=== PATIENT | male | born 1995 | race Two or more races ===

== ENCOUNTER 2021-06-09 21:29 | Emergency (ER) | payer OTHER ==
[~2021-06-09] VITALS: Ht 175.3 cm; Wt 68.2 kg
[2021-06-09 21:33] VITALS: BP 129/70
[2021-06-09] MEDS ORDERED: PredniSONE 20 MG TABLET PO ONE (22:15)
[2021-06-09] MEDS ORDERED: BACI3.5O24 OS (22:18)
== END 2021-06-09 22:34 | disposition home or self-care (01) ==
LOC: EMS 21:31
DX: H00.015 Hordeolum externum left lower eyelid (principal)
CPT/HCPCS: 99283; J7512

== ENCOUNTER 2023-10-13 14:47 | Emergency (ER) | payer OTHER ==
[~2023-10-13] VITALS: Ht 177.8 cm; Wt 75.0 kg
[~2023-10-13 14:47] MED LIST: BACI3.5O24 OS
[2023-10-13 14:51] VITALS: BP 133/64; PULSE 103; RESP 18; TEMP 103.3
[2023-10-13 16:04] LABS: INFLUENZA A-RTPCR,COMBO NEGATIVE (NEGATIVE); INFLUENZA B-RTPCR,COMBO NEGATIVE (NEGATIVE); RESPIRATORY SYNCYTIAL VRS-PCR NEGATIVE (NEGATIVE); SARS COVID19 RTPCR, COMBO NEGATIVE (NEGATIVE)
[2023-10-13] MEDS ORDERED: IBUP-1554 PO (17:23)
[2023-10-13] MEDS ORDERED: ACET-66 PO (17:23)
[2023-10-13] MEDS ORDERED: GUAIFDM PO (17:23)
== END 2023-10-13 18:04 | disposition home or self-care (01) ==
LOC: EMS 14:53
DX: J06.9 Acute upper respiratory infection, unspecified (principal); R50.9 Fever, unspecified; R05.9 Cough, unspecified; R51.9 Headache, unspecified; Z20.822 Contact with and (suspected) exposure to COVID-19
CPT/HCPCS: 99283; 0241U